=== PATIENT | female | born 1955 | race Two or more races ===

== ENCOUNTER 2018-02-08 04:40 | Day surgery (SDC) | payer OTHER ==
[~2018-02-08] VITALS: Ht 154.9 cm; Wt 56.2 kg
[~2018-02-08 04:40] MED LIST: LORAZEPAM0.5 MG PO; NORVASC5 MG PO; TOPROL XL50 M1 PO; ZOLOFT100 MG PO
[2018-02-09] MEDS ORDERED: GAS RELIEF125 MG PO (10:53)
[2018-02-09] MEDS ORDERED: BACTRIM DS TAB1 EACH PO (10:53)
== END 2018-02-09 11:00 | disposition home or self-care (01) ==
LOC: SURH 04:40 → SURG 04:40 → CIR.AMB 04:40 → O/R 04:40 → SURG 13:00 → EDSTATUS 13:15 → O/R 14:32 → SURH 14:32 → CIR.AMB 02-09 11:00 → SURH 02-09 13:07 → O/R 02-09 13:07
DX: D12.8 Benign neoplasm of rectum (principal)

== ENCOUNTER 2025-03-27 10:36 | Inpatient (IN) | payer OTHER ==
[~2025-03-27] VITALS: Ht 185.4 cm; Wt 55.3 kg
[~2025-03-27 10:36] MED LIST changes: +BACTRIM DS TAB1 EACH PO; +GAS RELIEF125 MG PO
[2025-03-27] MEDS ORDERED: IRBESARTAN300 MG (11:05)
[2025-03-27 11:14] VITALS: BP 126/83
[2025-04-08] MEDS ORDERED: RINGERS SOLUTION,LACTATED 1,000 ML IV SCH (11:30)
[2025-04-08] MEDS ORDERED: MORPHINE SULFATE 4 MG/ML CARTRIDGE IV PRN (11:30)
[2025-04-08] MEDS ORDERED: OxyCODONE HCL 5 MG TABLET (ROXICODONE) PO PRN (11:30)
[2025-04-08] MEDS ORDERED: ONDANSETRON HCL 2 MG/ML VIAL IV PRN (11:30)
[2025-04-08] MEDS ORDERED: CEFTRIAXONE SODIUM 1,000 MG VIAL IV ONE (12:00)
[2025-04-08] MEDS ORDERED: METROnidazole 500 MG TABLET (vss) PO ONE (12:00)
[2025-04-08] MEDS ORDERED: BUPIVACAINE HCL 30 ML VIAL IJ ONE (12:00)
[2025-04-08] MEDS ORDERED: LIDOCAINE HCL 1%/EPINEPHRINE 20ML VIAL IJ ONE (12:00)
[2025-04-08] MEDS ORDERED: PANTOPRAZOLE SODIUM 40 MG/VIAL VIAL IV ONE (12:00)
[2025-04-08] MEDS ORDERED: SIMETHICONE 125 MG CAPSULE PO SCH (13:00)
[2025-04-08] MEDS ORDERED: HYOSCYAMINE SULFATE 0.125 MG TAB.SUBL SL SCH (13:00)
[2025-04-08] MEDS ORDERED: ACETAMINOPHEN 500 MG GEL..CAP PO SCH (14:00)
[2025-04-08] MEDS ORDERED: SUGAMMADEX SODIUM 200 MG/2 ML VIAL IV ONE (15:00)
[2025-04-08 16:48] LABS: BASO % 0.2 % (0.1-1.2); EOS # 0.01 (0.04-0.54); EOS % 0.1 % (0.7-7.0); LYMPH # 1.09 (1.18-3.74); LYMPH % 9.9 % (19.3-53.1); MEAN PLATELET VOLUME 10.40 fl (9.4-12.4); MONO # 0.49 (0.24-0.82); MONO % 4.4 % (4.7-12.5); NEUT # 9.39 (1.56-6.13); NEUT % 85.0 % (34.0-71.1); RED CELL DISTRIBUTION WIDTH 12.1 % (11.6-14.4)
[2025-04-08] MEDS ORDERED: GABAPENTIN 300 MG CAPSULE PO SCH (17:00)
[2025-04-08] MEDS ORDERED: METOCLOPRAMIDE HCL 5 MG/ML VIAL IV SCH (17:00)
[2025-04-08 20:47] VITALS: BP 157/88; O2SAT 96
[2025-04-08] MEDS ORDERED: CELECOXIB 200 MG CAPSULE PO SCH (21:00)
[2025-04-08] MEDS ORDERED: FAMOTIDINE/PF 20 MG/2 ML VIAL IV PUSH SCH (21:00)
[2025-04-09] VITALS: BP 122/74; O2SAT 98
[2025-04-09 07:32] LABS: BASO % 0.2 % (0.1-1.2); EOS # 0.00 (0.04-0.54); EOS % 0.0 % (0.7-7.0); LYMPH # 0.39 (1.18-3.74); LYMPH % 4.1 % (19.3-53.1); MEAN PLATELET VOLUME 10.40 fl (9.4-12.4); MONO # 0.42 (0.24-0.82); MONO % 4.4 % (4.7-12.5); NEUT # 8.59 (1.56-6.13); NEUT % 91.0 % (34.0-71.1); RED CELL DISTRIBUTION WIDTH 12.0 % (11.6-14.4)
[2025-04-09 07:51] LABS: BUN CREA RATIO 21.0 (7.0-25.0); CREATININE SERUM 0.9 mg/dL (0.55-1.02); GFR 62.08; GLUCOSE FASTING 105.0 mg/dL (65-100); OSMOLALITY SERUM 286.0 MOSM/KG (275-295)
[2025-04-09 08:24] VITALS: BP 109/71; O2SAT 96
[2025-04-09] MEDS ORDERED: IRBESARTAN 300 MG TABLET PO SCH (09:00)
[2025-04-09] MEDS ORDERED: LACTOBACILLUS ACIDOPHILUS 1 CAP CAP PO SCH (09:00)
[2025-04-09] MEDS ORDERED: SERTRALINE HCL 100 MG TABLET PO SCH (09:00)
[2025-04-09] MEDS ORDERED: AMLODIPINE BESYLATE 5 MG TABLET PO SCH (09:00)
[2025-04-09] MEDS ORDERED: AMINO ACIDS 1 EACH TABLET PO SCH (12:00)
[2025-04-09] MEDS ORDERED: MAGNESIUM SULFATE IN WATER 4 GM/100 ML PIGGYBACK IV NR (12:15)
[2025-04-09 16:40] VITALS: BP 116/68; O2SAT 98
[2025-04-09] MEDS ORDERED: ENOXAPARIN SODIUM 40 MG/0.4 ML SYRINGE SUBCUTANEO SCH (17:00)
[2025-04-10 02:08] VITALS: BP 117/69; O2SAT 98
[2025-04-10 08:00] VITALS: BP 129/83; O2SAT 96
[2025-04-10] MEDS ORDERED: ENOXAPARIN SODIUM 40 MG/0.4 ML SYRINGE SUBCUTANEO SCH (09:00)
[2025-04-10 16:00] VITALS: BP 144/79; O2SAT 96
[2025-04-11 00:45] VITALS: BP 145/77; O2SAT 95
[2025-04-11 07:30] VITALS: BP 137/80; O2SAT 98
[2025-04-11 16:00] VITALS: BP 138/84; O2SAT 97
[2025-04-12 01:21] VITALS: BP 119/73; O2SAT 97
[2025-04-12 07:38] LABS: BASO % 0.6 % (0.1-1.2); EOS # 0.42 (0.04-0.54); EOS % 6.6 % (0.7-7.0); LYMPH # 0.75 (1.18-3.74); LYMPH % 11.8 % (19.3-53.1); MEAN PLATELET VOLUME 10.30 fl (9.4-12.4); MONO # 0.41 (0.24-0.82); MONO % 6.4 % (4.7-12.5); NEUT # 4.68 (1.56-6.13); NEUT % 73.3 % (34.0-71.1); RED CELL DISTRIBUTION WIDTH 12.5 % (11.6-14.4)
[2025-04-12 08:00] VITALS: BP 123/80; O2SAT 98
[2025-04-12 08:04] LABS: ALT/SGPT 26.0 U/L (12-78); AST/SGOT 31.0 U/L (15-37); BILIRUBIN TOTAL 0.68 mg/dL (0.3-1.2); BUN CREA RATIO 26.0 (7.0-25.0); CREATININE SERUM 0.62 mg/dL (0.55-1.02); GFR 95.44; GLOBULINA 2.8 G/DL (2.4-3.5); GLUCOSE FASTING 97.0 mg/dL (65-100); OSMOLALITY SERUM 286.0 MOSM/KG (275-295)
[2025-04-12] MEDS ORDERED: DEXTROSE 50 % IN WATER 0.5 G/ML DISP.SYRIN IV PRN (08:45)
[2025-04-12] MEDS ORDERED: INSULIN LISPRO 1,000 UNIT/10 ML UNITS SUBCUTANEO PRN (08:45)
[2025-04-12] MEDS ORDERED: LOPERAMIDE HCL 2 MG CAPSULE PO SCH (08:46)
[2025-04-12] MEDS ORDERED: MULTIVIT INFUSN,ADULT 4,VIT K 10 ML VIAL IV NR (10:00)
[2025-04-12 16:00] VITALS: BP 123/84; O2SAT 97
[2025-04-13 00:30] VITALS: BP 133/82; O2SAT 98
[2025-04-13 08:00] VITALS: BP 150/90; O2SAT 99
[2025-04-14] VITALS: BP 121/75; O2SAT 96
[2025-04-14 07:56] LABS: BASO % 0.7 % (0.1-1.2); EOS # 0.10 (0.04-0.54); EOS % 1.7 % (0.7-7.0); LYMPH # 0.67 (1.18-3.74); LYMPH % 11.6 % (19.3-53.1); MEAN PLATELET VOLUME 9.80 fl (9.4-12.4); MONO # 0.50 (0.24-0.82); MONO % 8.7 % (4.7-12.5); NEUT # 4.33 (1.56-6.13); NEUT % 75.0 % (34.0-71.1); RED CELL DISTRIBUTION WIDTH 12.3 % (11.6-14.4)
[2025-04-14 08:00] VITALS: BP 139/79; O2SAT 98
[2025-04-14 08:48] LABS: BUN CREA RATIO 16.0 (7.0-25.0); CREATININE SERUM 0.49 mg/dL (0.55-1.02); GFR 125.22; GLUCOSE FASTING 84.0 mg/dL (65-100); OSMOLALITY SERUM 279.0 MOSM/KG (275-295)
[2025-04-14 16:00] VITALS: BP 131/85; O2SAT 97
[2025-04-15 00:30] VITALS: BP 146/81; O2SAT 97
[2025-04-15 06:44] LABS: BASO % 0.3 % (0.1-1.2); EOS # 0.04 (0.04-0.54); EOS % 0.6 % (0.7-7.0); LYMPH # 0.47 (1.18-3.74); LYMPH % 6.6 % (19.3-53.1); MEAN PLATELET VOLUME 9.40 fl (9.4-12.4); MONO # 0.50 (0.24-0.82); MONO % 7.1 % (4.7-12.5); NEUT # 5.74 (1.56-6.13); NEUT % 81.0 % (34.0-71.1); RED CELL DISTRIBUTION WIDTH 12.3 % (11.6-14.4)
[2025-04-15 07:15] LABS: BUN CREA RATIO 19.0 (7.0-25.0); CREATININE SERUM 0.54 mg/dL (0.55-1.02); GFR 111.94; GLUCOSE FASTING 104.0 mg/dL (65-100); OSMOLALITY SERUM 279.0 MOSM/KG (275-295)
[2025-04-15 07:28] LABS: BAND MAN 2.0 %; LYMPHOCYTE MAN 7.0 %; MONOCYTE MAN 4.0 %; MYELOCYTE 1.0 %; NEUTROPHILS MAN 78.0 %
[2025-04-15 08:00] VITALS: BP 132/80; O2SAT 98
[2025-04-15 16:00] VITALS: BP 145/80; O2SAT 99
[2025-04-16 08:38] VITALS: BP 133/85; O2SAT 98
[2025-04-16] MEDS ORDERED: INTESTINEX680 M1 PO (08:58)
[2025-04-16] MEDS ORDERED: PEPCID AC20 MG PO (08:58)
[2025-04-16] MEDS ORDERED: PROTONIX40 MG PO (08:59)
[2025-04-16] MEDS ORDERED: PANTOPRAZOLE SODIUM 40 MG TABLET.DR PO SCH (09:00)
== END 2025-04-16 13:59 | disposition home or self-care (01) | DRG 330 ==
LOC: O/R 04-08 09:00 → SURG 04-08 09:00 → SURH 04-08 09:30 → SURG 04-08 14:59
PROVIDERS: Internal Medicine; ADMIT Surgery; ATTEND Surgery
PROC: 0DTP4ZZ Resection of Rectum, Percutaneous Endoscopic Approach (ICD-10-PCS; 2025-04-08)
PROC: 07BB4ZZ Excision of Mesenteric Lymphatic, Percutaneous Endoscopic Approach (ICD-10-PCS; 2025-04-08)
PROC: 0DJD8ZZ Inspection of Lower Intestinal Tract, Via Natural or Artificial Opening Endoscopic (ICD-10-PCS; 2025-04-08)
PROC: 0D1B4Z4 Bypass Ileum to Cutaneous, Percutaneous Endoscopic Approach (ICD-10-PCS; principal; 2025-04-08 09:30)
DX: C20 Malignant neoplasm of rectum (principal); C78.6 Secondary malignant neoplasm of retroperitoneum and peritoneum; D12.8 Benign neoplasm of rectum; E78.00 Pure hypercholesterolemia, unspecified; I11.9 Hypertensive heart disease without heart failure; I00 Rheumatic fever without heart involvement; F41.9 Anxiety disorder, unspecified; Z85.048 Personal history of other malignant neoplasm of rectum, rectosigmoid junction, and anus; Z86.0100 Personal history of colon polyps, unspecified